=== PATIENT | female | born 1995 | race African-American/Black ===

== ENCOUNTER → 2020-06-26 17:40 | Observation (INO) | END | disposition home or self-care (01) | LOC: 1NENULAB | PROVIDERS: ADMIT Advanced Practice Midwife; ATTEND Advanced Practice Midwife ==

== ENCOUNTER 2020-07-13 06:00 | Inpatient (IN) ==
[2020-07-13] MEDS ORDERED: Famotidine 20 MG/2 ML VIAL IVP PRN (06:05)
[2020-07-13] MEDS ORDERED: *HR* Nalbuphine 10 MG/ML AMPUL IV PRN (06:05)
[2020-07-13] MEDS ORDERED: Metoclopramide 10 MG/2 ML VIAL IVP PRN (06:05)
[2020-07-13] MEDS ORDERED: Naloxone 0.4 MG/ML INJ IVP PRN (06:05)
[2020-07-13] MEDS ORDERED: Lidocaine 1% 20 ML MDV INFILT PRN (06:05)
[2020-07-13] MEDS ORDERED: Oxytocin 20 units/ LR 1000 mL 20 UNIT/1,000 ML BAG IVC SCH ×2 (06:15→18:31)
[2020-07-13] MEDS ORDERED: Ringers Solution, Lactated 1,000 ML IVC SCH (06:15)
[2020-07-13 07:05] LABS: Basophils % 0.1 %; Eosinophils # 0.2 K/mcL (0.0-0.6); Eosinophils % 1.5 %; Hematocrit 34.3 % (35.3-44.9); Hemoglobin 11.3 g/dL (11.5-15.4); Immature Granulocytes % 0.4 % (0-4); Lymphocytes % 22.1 %; Mean Corpuscular HGB Conc 32.9 g/dL (31.6-35.5); Mean Corpuscular Hemoglobin 28.5 pg (28.0-33.3); Mean Corpuscular Volume 86.6 fL (83.0-100.0); Mean Platelet Volume 9.6 fL (9.4-12.4); Monocytes % 7.4 %; Neutrophils # 9.4 K/mcL (1.6-8.9); Platelet Count 269 K/mcL (140-400); Red Blood Count 3.96 M/mcL (3.82-4.97); Red Cell Distribution Width 13.4 % (11.5-14.5); Segmented Neutrophils % 68.5 %; White Blood Count 13.8 K/mcL (4.3-11.1)
[2020-07-13 08:17] LABS: Amphetamine Screen,Urine Negative ng/mL (Cutoff=1000); Barbiturate Screen,Urine Negative ng/mL (Cutoff=200); Benzodiazepines Screen,Urine Negative ng/mL (Cutoff=200); Cannabinoid Screen,Urine Negative ng/mL (Cutoff = 50); Cocaine Screen,Urine Negative ng/mL (Cutoff= 300); Opiate Screen,Urine Negative ng/mL (Cutoff=300); Phencyclidine Screen,Urine Negative ng/mL (Cutoff=25)
[2020-07-13] MEDS ORDERED: EPHEDrine 50 MG/ML VIAL IVP PRN (10:53)
[2020-07-13] MEDS ORDERED: *HR* FentaNYL (PF) 100 MCG/2 ML VIAL EP ONE (10:53)
[2020-07-13] MEDS ORDERED: Epidural Premix (fent/bupiv) 110 ML EP SCH (11:00)
[2020-07-13] MEDS ORDERED: Ropivacaine/PF 0.2% 20 ML VIAL ONE (13:24)
[2020-07-13] MEDS ORDERED: *HR* FentaNYL (PF) 100 MCG/2 ML VIAL ONE (13:25)
[2020-07-13] MEDS ORDERED: *HR* HYDROcodone/Acet 5/325 mg TABLET PO PRN (18:31)
[2020-07-13] MEDS ORDERED: Benzocaine/Menthol 56 GM AEROSOL SPRAY TP PRN (18:31)
[2020-07-13] MEDS ORDERED: Lanolin 7 G OINT...G. TP PRN (18:31)
[2020-07-13] MEDS: Ibuprofen 600 MG TABLET PO PRN (18:47)
[2020-07-13] MEDS: Acetaminophen 325 MG TABLET PO PRN (21:01)
[2020-07-14] MEDS: Ibuprofen 600 MG TABLET PO PRN ×2 (04:25→12:41)
[2020-07-14 08:03] VITALS: BP 141/92
[2020-07-14] MEDS: Acetaminophen 325 MG TABLET PO PRN ×2 (08:06→15:26)
[2020-07-14] MEDS ORDERED: Prenatal Vit/FA 1 EACH TABLET PO SCH (09:00)
== END 2020-07-14 15:42 | disposition home or self-care (01) | DRG 560 ==
LOC: 1NENULAB 06:02 → 1NENUOBS 19:57
PROVIDERS: ADMIT Obstetrics & Gynecology; ATTEND Obstetrics & Gynecology